=== PATIENT | female | born 1960 | race Caucasian/White ===

== ENCOUNTER 2022-09-21 17:29 | Emergency (ER) | payer OTHER, SELFPAY ==
[2022-09-21 17:38] VITALS: BP 135/69; PULSE 68; RESP 18; TEMP 36.8; O2SAT 99; BMI 25.7
--- NOTE | 2022-09-21 17:58 | ED_ITS ---
HPI - General Adult General: Chief complaint: General Medical Stated complaint: Mouth pain Time Seen by Provider: 09/21/22 17:58 History of Present Illness: Ms. Tang is a 62-year-old lady presented to the emergency department for evaluation of abnormal sensation in her mouth. She is currently driving from [place] to [place] to see family. She noticed this morning, without known provoking event, burning sensation of basically all of her upper and lower lips. She tried topical triple acting antibiotic with some mild improvement though subsequently developed a little bit of sensation on her tongue as well. Mostly burning though perhaps induces some minimal fullness sensation. Intensity symptoms is mild to moderate. Course has not significantly persisted. Denies similar episodes in the past. She denies rashes, shortness of breath, throat tightness, chest pain, GI symptoms, or other systemic symptoms of allergic reaction. Denies new environmental contacts or medications/foods. No other specific changes in health, exacerbating, or alleviating factors identified. Onset (ago): hour(s) Location: mouth Severity: moderate Quality: burning Review of Systems General: Reports: 10 or more systems reviewed and unremarkable except in HPI and below PFSH ED PFSH: Medical History H/O coronary stenosis History of IN (myocardial infarction) History of stroke Surgical History History of appendectomy Physical Exam Const: COMMON NORMALS: alert GENERAL APPEARANCE: cooperative and well developed HENMT: COMMON NORMALS: normocephalic and atraumatic HEAD & SCALP: normocephalic and atraumatic THROAT: posterior oropharynx normal OTHER: See MDM Eye: COMMON NORMALS: conjunctivae normal CONJUNCTIVA: Yes conjunctivae normal SCLERA: sclerae normal Neck/C-Spine: COMMON NORMALS: supple GENERAL: Yes trachea midline Resp: COMMON NORMALS: clear to auscultation bilaterally EFFORT & INSPECTION: Yes able to speak in complete sentences AUSCULTATION: clear to auscultation bilaterally Cardio: COMMON NORMALS: regular rate and regular rhythm RATE: regular rate RHYTHM: regular rhythm GI: COMMON NORMALS: Soft to palpation PALPATION: Yes Soft to palpation and No Tenderness to palpation present (GI) Extremity: GENERAL: Yes normal exam except as noted and No edema Neuro: COMMON NORMALS: moves all extremities SENSORIUM/ORIENTATION: Yes thierno rt and No Orientation impaired Psych: COMMON NORMALS: mental status grossly normal and Normal thought process present THOUGHT PROCESS: Normal thought process present Course Vital Signs: Vital signs: Vital Signs Temperature 98.2 F 09/21/22 17:38 Pulse Rate 68 09/21/22 17:38 Respiratory Rate 18 09/21/22 17:38 Blood Pressure 135/69 09/21/22 17:38 Pulse Oximetry 99 09/21/22 17:38 Oxygen Delivery Me thod Room Air 09/21/22 17:38 MDM - General Adult Medical Decision Making 62-year-old lady sensation. No evidence of systemic allergic reaction. On exam no obvious abnormality, no blistering, no erythema, no rash lesions. No distortion of posterior oropharynx. No evidence of deep tracking infection. No evidence of Ludewig's angina. No appreciable tongue or posterior pharyngeal edema. No visual evidence of bacterial overgrowth or abnormality. Most likely etiology of symptoms is burning mouth syndrome however given patient reported mild tongue fullness though no significant edema predated on exam I will treat in case of mild allergic reaction. Certainly no evidence of airway compromise or progressing allergic reaction. Steroids, Benadryl, Pepcid ordered. The results of ED evaluation were discussed with the patient including pres criptions and/or symptomatic cares (if applicable) including appropriate and responsible use, followup plan, and return precautions. The patient verbalized understanding and felt safe for discharge. Medical Records I reviewed the patient's medical records. Lab Data I reviewed the patient's lab results. Discharge Plan Discharge Patient Disposition: Home Clinical Impression: Burning sensation of mouth Condition: Stable Prescriptions: New Benadryl 25 mg capsule 25 mg PO Q6H PRN (Reason: allergic reaction) Qty: 30 0RF Discharge Orders: Discharge ED (Routine); Ordered 09/21/22 Ordered By: Bakari Milner Discharge Diet: Usual diet Discharge Activity: Resume usual activity Patient Instructions: Burning Mouth Syndrome, General Allergic Reaction (ED) Activity Restrictions/Additional Instructions: Thank you for visiting the emergency department. You were seen and evaluated for burning sensation in her mouth and tongue. The exact cause your symptoms is unclear. Though I am unsure of what a new exposure would be it is always possible that you are having a mild allergic reaction that this will be treated. More likely this is related to a condition called burning mouth syndrome. The treatment for this is supportive. Use mouthwashes that encourage moisture and start taking a multivitamin if you do not currently take one. I recommend follow-up with your primary care provider. Return immediately to an emergency department for worsening symptoms, shortness of breath, throat tightness, increased swelling of tongue or lips, or anything else that you are concerned about and feel needs emergency department evaluation. Coding Level of Care Code ED Mixing Tumbler Operator for Perry Gibson
[2022-09-21] MEDS: predniSONE 20 mg Tablet 40 MG PO (18:38)
[2022-09-21] MEDS: famotidine 20 mg Tablet 40 MG PO (18:38)
== END 2022-09-21 18:47 | disposition home or self-care (01) ==
PROVIDERS: Emergency Provider Emergency Medicine
DX: R20.8 Other disturbances of skin sensation (principal); I25.2 Old myocardial infarction; Z86.73 Personal history of transient ischemic attack (TIA), and cerebral infarction without residual deficits
CPT/HCPCS: 99283; J7512